=== PATIENT | male | born 1965 | race Caucasian/White ===

== ENCOUNTER → 2023-02-20 11:14 | Outpatient (CLI) | payer OTHER, SELFPAY ==
--- NOTE | 2023-02-20 | DI.CT.S_ITS ---
PROCEDURE: CT KIDNEY URETER BLADDER (KUB) INDICATIONS: CALCULUS OF KIDNEY TECHNIQUE: Axial sections were acquired from the lung bases to the pubic symphysis. Coronal and sagittal reformats were performed. For radiation dose reduction, the following was used: automated exposure control, adjustment of mA and/or kV according to patient size. COMPARISON: None. FINDINGS: Image quality: Excellent. Lung bases: Unremarkable. Heart: No significant findings. URINARY: Right Kidney: There are multiple nonobstructing calculi, the largest of which measures 1.1 cm in diameter and approximately 1200 Hounsfield units in density. No hydronephrosis or nephrolithiasis. Right Ureter: No hydroureter or ureterolithiasis. Left Kidney: There are multiple nonobstructing calculi, the largest of which measures 7 mm in diameter. Left Ureter: No hydroureter or ureterolithiasis. Bladder: Normal wall thickness. No stones. ABDOMEN: Liver: Unremarkable. Gallbladder: Unremarkable. Biliary ducts: Unremarkable. Pancreas: Unremarkable. Spleen: Unremarkable. Adrenal Glands: Unremarkable. Stomach and Bowel: Stomach, small bowel loops, and colon are unremarkable. The appendix is thin walled. Peritoneum: No abnormal intraperitoneal fluid. No free air. Ventral Wall: There is a small fat containing umbilical hernia. Abdominal Nodes: No enlarged retroperitoneal or mesenteric lymph nodes. Vessels: Aorta and inferior vena cava are normal in size. PELVIS: Pelvic Organs: Unremarkable. Pelvic Nodes: Unremarkable. Miscellaneous: There is a moderate-sized left fat containing inguinal hernia. Bones: Unremarkable. IMPRESSION: 1. Bilateral nonobstructing nephrolithiasis. No hydronephrosis, hydroureter, or ureterolithiasis. 2. Normal appendix. Dictated by: Zonia Kerr M.D. on 02/20/2023 at 12:42 Approved by: Zonia Kerr M.D. on 02/20/2023 at 12:51
== END ==
PROVIDERS: Referring Provider Nurse Practitioner Family; Visit Provider Nurse Practitioner Family
DX: N20.0 Calculus of kidney (principal)
CPT/HCPCS: 74176

== ENCOUNTER 2023-10-17 06:31 | Emergency (ER) | payer OTHER, SELFPAY ==
[2023-10-17] VITALS (8 sets, daily range): BP systolic 122–160; BP diastolic 67–85; PULSE 69–82; RESP 18; TEMP 36.8; O2SAT 95–99; BMI 26.6
--- NOTE | 2023-10-17 07:39 | ED_ITS ---
HPI - General Adult General Chief complaint: Skin/Abscess/Foreign Body Stated complaint: rash back of legs/back/arms x9 days Time Seen by Provider: 10/17/23 07:02 Source: patient Mode of arrival: Ambulatory History of Present Illness HPI narrative: 57-year-old gentleman typically followed by the NH, orthopedic issues including degenerative disc disease, osteoarthritis of the knee in the hips, bilateral rotator cuff tears hyperlipidemia with no history of immunocompromised situation, no risk factors for HIV, no known severe systemic diseases or cancers and not on any biologic agents presents with diffuse rash over his entire body. His symptoms started with a vesicular plaque on the right calf in June, spread up his leg than to the left leg and over the last 7-10 days has gotten progressively worse and now involves essentially his entire body. He is got some small lesions with suggestion for developing palmar distribution. Nothing under the soles. It does involve his face, his scalp, it is not skin exposure dependent. He has not been on any new medications, no new exposures. He states that he is becoming more and more itchy which is his main reason that he presents today. He is concerned that the right calf may becoming infected. He has had no weight loss, night sweats. He does not describe any mucocutaneous complications such as eye irritation, sores inside his mouth genitals, difficulty swallowing or sore throat. He has describing no abdominal pain or distention. He has been able to eat and drink without difficulties. He has not been having fevers. He notes that he did have chickenpox a child but has never had shingles. He works in the [employer], is , lives in [place] no unusual travel. He has a [place] Related Data Previous Rx's Medication Instructions Recorded cephalexin 500 mg capsule 500 mg PO TID #30 caps 10/17/23 methylprednisolone 4 mg tablets in See Rx Instructions PO .COMPLEX 10/17/23 a dose pack (Medrol (Vini)) #21 ea valacyclovir 1 gram tablet 1,000 mg PO BID #14 tabs 10/17/23 Allergies Allergy/AdvReac Type Severity Reaction Status Date / Time No Known Drug Allergies Allergy Verified 10/17/23 07:54 Review of Systems Review of Systems Narrative: Pertinent positive and negative findings as per HPI Patient History Medical History (Updated 10/17/23 @ 10:49 by Beth Colorado MD) Hyperlipidemia Rotator cuff injury Osteoarthritis alcohol intake frequency: 3 or more drinks per day Alcohol type: beer Substance Use Type: does not use Exam Initial Vital Signs Initial Vital Signs: Vital Signs Temperature 98.3 F 10/17/23 06:51 Pulse Rate 80 10/17/23 06:51 Respiratory Rate 18 10/17/23 06:51 Blood Pressure 160/85 H 10/17/23 06:51 Pulse Oximetry 98 10/17/23 06:51 Oxygen Delivery Method Room Air 10/17/23 06:51 General: Healthy appearing, in no acute distress. Able to give a complete and coherent history. Well-nourished well-developed HEENT: Moist mucous membranes, normal sclera with reactive pupils, mucous membranes are free of any vesicular lesions. No herpetic lesions over his lips. Neck: No cervical adenopathy Respiratory: Lungs are clear to auscultation, no wheezing no rales no rhonchi. Full and symmetrical air movement Cardiac: Regular rate and rhythm no murmurs no bruits Abdomen: Soft, nontender, no hepatomegaly, no flank pain Skin: Warm and dry, significant total body rash that appears herpetiform. Vesicles fill with clear fluid on an erythematous base. Involving entire body with concern for developing lesion over the palm on the right side. No lesions over the bottom of his feet. Area of concern on the right calf is becoming superinfection. Multiple areas of significant excoriation secondary to itching with concern for secondary bacterial infection. There are lesions into the ear canals. Neurologic: Grossly neurologically intact with no obvious asymmetries or abnormalities Extremities: No trauma, well perfused Psych: Cooperative, appropriate insight and affect Course Orders Ordered: ED Orders 10/17/23 08:02 CRP [C-Reactive Protein Quant] Stat Complete Blood Count AUTO DIFF Stat Comprehensive Metabolic Panel Stat Erythrocyte Sedimentation Rate Stat Acyclovir 770 mg/ Dextrose 250 mls @ 250 mls/hr IV Q8H [facility] Last Infusion: 10/17/23 09:46 Dose: Infused Documented By: Admin: 10/17/23 08:36 Dose: 250 mls/hr Documented By: CTS Discontinued Medications Ceftriaxone Sodium 2,000 mg/ (Sodium Chloride) 100 mls @ 200 mls/hr IV NOW ONE Stop: 10/17/23 07:30 Last Infusion: 10/17/23 08:31 Dose: Infused Documented By: Admin: 10/17/23 07:55 Dose: 200 mls/hr Documented By: SALO Methylprednisolone (Methylprednisolone 125 Mg/2 Ml Vial) 125 mg IV NOW ONE Stop: 10/17/23 07:30 Last Admin: 10/17/23 07:55 Dose: 125 mg Documented By: SALO Vital Signs Vital signs: Vital Signs - 8 hr 10/17/23 06:51 10/17/23 07:50 10/17/23 08:00 Temperature 98.3 F Pulse Rate 80 82 71 Respiratory Rate 18 Blood Pressure 160/85 H Pulse Oximetry 98 98 98 Oxygen Delivery Method Room Air 10/17/23 08:13 10/17/23 08:13 10/17/23 08:30 Temperature Pulse Rate 71 72 Respiratory Rate Blood Pressure 126/71 Pulse Oximetry 99 98 Oxygen Delivery Method 10/17/23 08:30 Temperature Pulse Rate Respiratory Rate Blood Pressure 122/69 Pulse Oximetry Oxygen Delivery Method Medical Decision Making Lab Data 10/17/23 08:02 10/17/23 08:02 Labs: Lab Results 10/17/23 Range/Units 08:02 WBC 5.0 (4.5-11.0) X10^3/uL RBC 4.76 (4.5-5.9) X10^6/uL Hgb 15.2 (13.5-17.5) g/dL Hct 43.8 (41-53) % MCV 92.0 (80-100) fL MCH 31.9 (26-34) PG MCHC 34.7 (30-36) % RDW 13.1 (11.6-14.8) % Plt Count 156 (150-400) X10^3/uL Neut % (Auto) 53.0 (50-75) % Lymph % (Auto) 27.1 (25-40) % Newberry % (Auto) 10.2 (3-14) % Eos % (Auto) 9.3 H (2-4) % Baso % (Auto) 0.4 (0-2) % Neut # (Auto) 2600 (6848-9128) /uL Lymph # (Auto) 1300 (6243-0531) /uL Newberry # (Auto) 500 (0-900) /uL Eos # (Auto) 500 H (0-450) /uL Baso # (Auto) 0 (0-100) /uL ESR 5 (0-15) MM/HR Sodium 137 (137-145) mmol/L Potassium 4.1 (3.4-5.1) mmol/L Chloride 104 (98-107) mmol/L Carbon Dioxide 31 (22-32) mmol/L BUN 19 (9-20) mg/dL Creatinine 0.97 (0.66-1.25) mg/dL Estimated GFR > 60 (>60) mL/min BUN/Creatinine Ratio 19.6 (6-22) Glucose 92 (70-100) mg/dL Calcium 9.7 (8.4-10.2) mg/dL Total Bilirubin 0.8 (0.2-1.3) mg/dL AST 41 (17-59) IU/L ALT 33 (<50) IU/L Alkaline Phosphatase 55 (38-126) U/L C-Reactive Protein 0.5 (<1.0) mg/dL Total Protein 7.6 (6.3-8.2) g/dL Albumin 4.4 (3.5-5.0) g/dL Globulin 3.2 (1.7-4.1) g/dL Albumin/Globulin Ratio 1.4 (1.0-2.8) MDM Narrative Medical decision making narrative: CC: Disseminated herpetiform rash Complicating co-morbidities: Hyperlipidemia Data collected from: patient Medical records reviewed: Patient gets his care at the NH Differential considered: Disseminated shingles, with a distribution I do not think that this is son related drug reaction, doubt complicated drug eruption, this does not appear to be impetigo, it is not bulous lesions or deeper than epidermal layers, no obvious mucocutaneous involvement. No symptoms of encephalitis. Concern for secondary infection Exam documented above, pertinent findings include: Significant herpetiform rash, vesicles on an erythematous base without purulence over his entire body. Excoriated areas and the area where the rash started in June on the right calf does appear secondarily infected with cellulitis. Consultations: 1030 Dr Serna infectious disease specialist. Agrees with the viral PCR, prophylactic acyclovir. Question of hospitalization with IV acyclovir and fluids for 24 hours versus home with oral medications. 1035 patient is re-evaluated and with the 125 mg of Solu-Medrol the rash is dramatically improved with a significant portion of the erythema resolving. Certainly help the urticaria. 1040 discussed with hospitalist. He will evaluate but feels the patient will likely do well with discharge home and oral medications. With the continued improvement each time I recheck on the patient and the resolving erythema I believe the prednisone may have been with the more important factors in all of this and likely he will be safe for discharge. Patient is amenable to hospitalization if suggested and understands that he may well be able to be discharged home Treatments: IV prednisone, acyclovir, ceftriaxone Discussion: 57-year-old gentleman with a vesicular rash initially started right calf in June. That area has now become secondarily infected and the vesicular rash has spread over his entire body. He has not having any secondary signs of infection, sepsis or organ injury. No evidence of encephalitis. Given the dramatic improvement after the prednisone will have him complete a Medrol Dosepak, 7 days of Keflex for his cellulitis and 7 days of valacyclovir for the vesicular rash uncertain etiology but looking entirely herpetiform. In light of no secondary symptoms of infection, systemic injury, sepsis I believe that he can be discharged home. Reviewed all of this with the patient, questions are answered and he will be safe for discharge Discharge Plan Departure Patient Disposition: Home Clinical Impression: Vesicular rash, Pruritus Cellulitis Qualifiers: Site of cellulitis: other site Qualified Code(s): L03.818 - Cellulitis of other sites Instructions: DI for Cellulitis -- Adult Activity Restrictions/Additional Instructions: Thank you for coming in today I am not sure with the rashes specifically but it does look like it is related to 1 of the herpes viruses. I have given you a prescription for [place] acyclovir, an antiviral medication to take 3 times a day for the next 7 days. For the cellulitis due to the itching and bacteria working its way into your skin from all of these vesicles, I have given you a dose of IV antibiotics here in the emergency department and a prescription for cephalexin, an antibiotic, to be taken 3 times a day for 7 days For the itching I have given you a Medrol Dosepak. You received a large dose of steroid in the emergency department so this does not need to be started until tomorrow. It is a decreasing dose of steroid over the next 5 days If you find that you are getting worse, with fevers, worsening itching, worsening blister type rash or new symptoms you do need to return to the emergency department If symptoms are not entirely resolved at the end of this treatment I would follow up with your primary care doctor. You may need a skin biopsy for definitive diagnosis. Prescriptions: New cephalexin 500 mg capsule 500 mg PO TID Qty: 30 0RF valacyclovir 1 gram tablet 1,000 mg PO BID Qty: 14 0RF methylprednisolone [Medrol (Vini)] 4 mg tablets,dose pack See Rx Instructions .ROUTE .COMPLEX Qty: 21 0RF Rx Instructions: orally per package directions Stand Alone Forms: Patient Portal/API
[2023-10-17] MEDS: cefTRIAXone 2,000 MG in SODIUM CHLORIDE 0.9% 100 ML 200 MG IV (07:55)
[2023-10-17] MEDS: methylPREDNISolone 125 MG/2 ML VIAL IV (07:55)
[2023-10-17 08:14] LABS: Add Manual Diff / Slide Review NO; Basophils Absolute Auto 0 /uL (0-100); Basophils Percent Auto 0.4 % (0-2); Eosinophils Absolute Auto 500 /uL (0-450); Eosinophils Percent Auto 9.3 % (2-4); Hematocrit 43.8 % (41-53); Hemoglobin 15.2 g/dL (13.5-17.5); Lymphocytes Absolute Auto 1300 /uL (1100-4500); Lymphocytes Percent Auto 27.1 % (25-40); Mean Corpuscular HGB Conc 34.7 % (30-36); Mean Corpuscular Hemoglobin 31.9 PG (26-34); Monocytes Absolute Auto 500 /uL (0-900); Monocytes Percent Auto 10.2 % (3-14); Neutrophils Absolute Auto 2600 /uL (1500-7000); Platelet Count 156 X10^3/uL (150-400); Red Blood Cell Count 4.76 X10^6/uL (4.5-5.9); Red Cell Distribution Width 13.1 % (11.6-14.8)
[2023-10-17 08:25] LABS: Alanine Aminotransferase 33 IU/L (<50); Albumin 4.4 g/dL (3.5-5.0); Albumin Globulin Ratio 1.4 (1.0-2.8); Alkaline Phosphatase 55 U/L (38-126); Aspartate Aminotransferase 41 IU/L (17-59); BUN Creatinine Ratio 19.6 (6-22); Bilirubin Total 0.8 mg/dL (0.2-1.3); Blood Urea Nitrogen 19 mg/dL (9-20); C-Reactive Protein Quant 0.5 mg/dL (<1.0); Calcium 9.7 mg/dL (8.4-10.2); Carbon Dioxide 31 mmol/L (22-32); Chloride 104 mmol/L (98-107); Estimated Glomerular Filt Rate > 60 mL/min (>60); Globulin 3.2 g/dL (1.7-4.1); Glucose 92 mg/dL (70-100); HEMOLYSIS < 15 (0-50); Potassium 4.1 mmol/L (3.4-5.1); Sodium 137 mmol/L (137-145); Total Protein 7.6 g/dL (6.3-8.2)
[2023-10-17] MEDS: WATER IV (08:36)
[2023-10-17] MEDS: ACYCLOVIR IV (08:36)
[2023-10-17] MEDS: DEXTROSE 5% IV (08:36)
[2023-10-17 08:48] LABS: Erythrocyte Sedimentation Rate 5 MM/HR (0-15)
[2023-10-17] MEDS: SODIUM CHLORIDE 0.9% 1,000 ML 150 ML IV (10:33)
[2023-10-18 08:08] LABS: RPR Screen Non Reactive (Non Reactive)
[2023-10-18 22:46] LABS: Varicella Zoster PCR Negative (Negative)
[2023-10-19 18:56] LABS: HSV 1 DNA Negative (Negative); HSV 2 DNA Negative (Negative)
== END 2023-10-17 11:08 | disposition home or self-care (01) ==
PROVIDERS: Emergency Provider Emergency Medicine
DX: L03.818 Cellulitis of other sites (principal); R21 Rash and other nonspecific skin eruption; L29.9 Pruritus, unspecified
CPT/HCPCS: 80053; 85025; 85651; 86140; 86592; 87529; 87798; 96365; 96367; 96375; 99283; 99284; J0696; J2919